=== PATIENT | female | born 1995 | race African-American/Black ===

== ENCOUNTER 2020-11-01 09:08 | Emergency (ER) | payer OTHER, SELFPAY ==
[2020-11-01] MEDS ORDERED: Lidocaine 2% PF 5 ML VIAL ONE (09:17)
[2020-11-01] MEDS ORDERED: Boostrix 0.5 ML (Tdap) VIAL ONE (09:28)
== END 2020-11-01 09:46 | disposition home or self-care (01) ==
LOC: BURERS 09:08
DX: S61.210A Laceration without foreign body of right index finger without damage to nail, initial encounter (principal); W26.9XXA Contact with unspecified sharp object(s), initial encounter; Z79.899 Other long term (current) drug therapy
CPT/HCPCS: 90471; 90715; J2001

== ENCOUNTER 2022-09-23 08:18 | Emergency (ER) | payer SELFPAY ==
[2022-09-23 08:51] LABS: #Eosinphils 0.1 thou/uL (0.0-0.7); #Lymphocytes 1.8 thou/uL (1.20-3.40); #Monocytes 0.4 thou/uL (0.11-0.59); #Neutrophils 3.2 thou/uL (1.40-6.50); %Basophils 0.8 % (0.0-1.0); %Eosinophils 1.2 % (0.0-10.0); %Monocytes 7.7 % (0.0-10.0); %Neutrophils 58.3 % (42.0-75.0); Hemoglobin 7.7 g/dL (12.0-16.0); Mean Corpuscular HGB CONC 28.9 g/dL (32.0-36.0); Mean Corpuscular Hemoglobin 17.6 pg (27.0-31.0); Mean Corpuscular Volume 60.9 fl (78.0-98.0); Mean Platelet Volume 9.5 fL (7.4-10.4); Platelet Count 289 10x3/uL (130-400); RBC Distribution Width 18.5 % (11.5-14.5); Red Blood Cell (RBC) Count 4.36 mill/uL (4.20-5.40); White Blood Cell (WBC) Count 5.5 10x3/uL (4.8-10.8)
[2022-09-23 09:12] LABS: ALT (SGPT) 12 U/L (8-55); AST (SGOT) 17 U/L (5-34); Alkaline Phosphatase 40 U/L (40-110); Anion Gap 10 mmol/L (10-20); BUN (Urea Nitrogen) 11 mg/dL (7.0-18.7); Bilirubin, Total 0.6 mg/dL (0.2-1.2); Calc. Creatinine Clearance 0 mL/min (70-130); Calcium 8.5 mg/dL (7.8-10.44); Carbon Dioxide 23 mmol/L (22-29); Chloride 107 mmol/L (98-107); Estimated GFR 124; Globulin 2.7 g/dL (2.4-3.5); Glucose 91 mg/dL (70-105); Lipase 31 U/L (8-78); Protein, Total 6.7 g/dL (6.0-8.3); Sodium 136 mmol/L (136-145)
[2022-09-23 09:27] LABS: Anisocytosis SLIGHT = 6-15 cells (100X) (0-5/hpf); Burr Cells SLIGHT = 2-5 cells (100X) (0-1/hpf); Elliptocytes SLIGHT = 2-5 cells (100X) (0-1/hpf); Hypochromia MODERATE=16-30 cells (100X) (0-5/hpf); MDiff Complete? YES; Microcytosis MARKED = >30 cells (100X) (0-5/hpf); Platelet Morphology Comment Appears Adequate; Reflex for Review?? NO; Schistocytes SLIGHT = 2-5 cells (100X) (0-1/hpf); Tear Drops SLIGHT = 2-5 cells (100X) (0-1/hpf)
== END 2022-09-23 09:48 | disposition home or self-care (01) ==
LOC: BURERS 08:18
DX: R07.9 Chest pain, unspecified (principal); D64.9 Anemia, unspecified
CPT/HCPCS: 36415; 71045; 80053; 83690; 84484; 85025; 93005

== ENCOUNTER 2023-03-28 19:22 | Emergency (ER) | payer SELFPAY | END 2023-03-28 20:40 | disposition home or self-care (01) | LOC: BURERS 19:22 | DX: S93.522A Sprain of metatarsophalangeal joint of left great toe, initial encounter (principal); W23.0XXA Caught, crushed, jammed, or pinched between moving objects, initial encounter ==